=== PATIENT | male | born 1960 | race Caucasian/White ===

== ENCOUNTER 2019-01-31 15:06 | Inpatient (IN) | payer BC ==
[~2019-01-31] VITALS: Ht 188 cm; Wt 104.3 kg
[2019-01-31 15:18] VITALS: Ht 188 cm; Wt 104.3 kg
--- NOTE | 2019-01-31 15:21 | NUR ---
EKG IN PROGESS
--- NOTE | 2019-01-31 15:29 | NUR ---
PT TO H1 FOR MONITORING UNTIL MONITORED BED IS AVAILABLE.
--- NOTE | 2019-01-31 15:36 | NUR ---
PT LYING IN BED, AAOX4 WITH C/O PALPATIONS WITH DIZZINESS AND SOB STARTING AT 1PM TODAY WHILE PT WAS EATING LUNCH WITH FAMILY. PT STATES 'ITS LIKE 2 PITBULLS ARE RUNNING AROUND MY CHEST'. PT STATES NO PAIN AT THIS TIME. NO SIGNS OF DISTRESS AT THIS TIME. PT STATES 'IT HAS CALMED DOWN ALOT SINCE I GOT HERE.' FAMILY AT BEDSIDE. PT ON MONITOR.
--- NOTE | 2019-01-31 15:42 | NUR ---
PT MOVED TO ED BED 4 FOR CARDIAC MONITORING.
--- NOTE | 2019-01-31 15:50 | NUR ---
DR MARTINES AT BEDSIDE FOR MSE
--- NOTE | 2019-01-31 15:52 | NUR ---
DURING MSE, PT ALSO ADMITTED TO DRINKING A "WHOLE POT" OF COFFEE THIS AM AND HAVING AN ENERGY DRINK PRIOR TO THE GYM IN THE AM.
--- NOTE | 2019-01-31 15:57 | NUR ---
IV BOLUS INITIATED PER MD ORDER, PT VERBALIZED UDNERSTANDING OF MEDICATION PRIOR TO ADMINISTRATION.
--- NOTE | 2019-01-31 16:04 | NUR ---
XRAY AT BEDSIDE
[2019-01-31 16:08] LABS: BASOPHIL % 0.8 % (0-2); PLATELET COUNT 233 x10^3mcL (130-400); RED CELL DISTRIBUTION WIDTH 13.7 % (11.5-14.5)
[2019-01-31 16:24] LABS: CALCIUM 9.4 mg/dL (8.5-10.1); CARBON DIOXIDE 27.7 mmol/L (21-32); CHLORIDE SERUM 104 mmol/L (98-107); CREATININE SERUM 1.1 mg/dL (0.7-1.3); GFR1 > 60 mL/min; GLUCOSE SERUM 109 mg/dL (74-106); SODIUM SERUM 141 mmol/L (136-145)
[2019-01-31 16:33] LABS: ALBUMIN 3.7 g/dL (3.4-5.0); ALKALINE PHOSPHATASE 46 U/L (46-116); ALT/SGPT 29 U/L (16-63); AST/SGOT 23 U/L (15-37); MAGNESIUM 1.8 mg/dL (1.8-2.4); TOTAL PROTEIN, SERUM 6.7 g/dL (6.4-8.2)
[2019-01-31 16:41] LABS: AMPHETAMINE QUAL UR NONE DETECTED (See below)
--- NOTE | 2019-01-31 16:46 | NUR ---
PT RESTING AT BEDSIDE IN NAD. BREATHING E/U, BILATERAL CHEST RISE. BED AT LOWEST POSITION. AT BEDSIDE. LIGHTS DIMMED TO PROMOTE PATIENT COMFORT.
[2019-01-31 17:02] LABS: FREE T4 1.09 ng/dL (0.76-1.46); FREE THYROXINE INDEX 2.6 ug/dL (1.4-4.5); T4(THYROXINE) 6.8 ug/dL (4.7-13.3)
[2019-01-31 17:03] LABS: T3 TOTAL 0.99 ng/mL
--- NOTE | 2019-01-31 17:17 | NUR ---
PT RESTING AT BEDSIDE IN NAD
[2019-01-31] MEDS ORDERED: NAPROXEN375 MG (18:21)
--- NOTE | 2019-01-31 18:43 | NUR ---
REPORT OFF TO DMITRI ORELLANA
[2019-01-31 19:06] LABS: PHOSPHOROUS 2.3 mg/dL (2.5-4.9)
[2019-01-31 19:18] LABS: CHOLESTEROL/HDL RATIO 2.1
[2019-01-31 19:27] VITALS: BP 123/79
--- NOTE | 2019-01-31 19:35 | NUR ---
RECEIVED PT FROM ER. PT ADMIT FOR NEW ONSET A.FIB, PT IS A/O X4, VERBAL RESPONSIVE, ABLE TO TELL WHAT HE NEEDS. LUNG SOUND CLEAR BILATERAL, NO COUGH, NO SOB, PT IS ON TELE 8, A.FIB, PT C/O PALIPATION AT THIS TIME, BOWEL SOUND PRESENT ALL 4 QUADRANTS, NO DISTENTION, NO TENDER. PEDAL PULSE PRESENT BOTH FEET, NO EDEMA, IV AT LEFT AC, NO LEAKING, NO INFILTRATION. ALL ADLS ASSIST, ALL NEED MET, CALL LIGHT IN REACH, WILL CONTINUE TO MONTIOR.
--- NOTE | 2019-01-31 19:50 | NUR ---
RECEIVED REPORT FROM ESTEBAN. PATIENT WAS SEEN RESTING COMFORTABLY IN BED WATCHING TV. INTRODUCED MYSELF. NO C/O PAIN. C/O IMPROVING PALPTATIONS. DENIES CHEST PAIN/PRESSURE AT THIS TIME. NO DISTRESS NOTED. BREATHING EVEN ON ROOM AIR. CALL LIGHT IS WITHIN REACH. COMFORT AND SAFETY MEASURSE MAINTAINED. BED IS LOCKED AND IN THE LOWEST POSITION. ABLE TO MAKE NEEDS KNOWN. INSTRUCTED TO CALL FOR ASSISTANCE.
--- NOTE | 2019-01-31 20:44 | NUR ---
ADMINISTERED SCHEDULED ATIVAN IV 2MG. PATIENT C/O OF ANXIOUSNESS. EDUCATED PATIENT THAT DROWSINESS MAY OCCUR. ALSO ADMINISTIERED SCHEDULED XARELTO. EDCUATED PATIENT ON THE MEDICATION AND POTENTIAL SIDE EFFECTS. PATIENT VERBALIZED UNDERSTANDING. PATIENT REPORTS FEELING LESS ANXIOUS. WILL CONTINUE TO MONITOR. NO DISTRESS NOTED. NO C/O PAIN. CALL LIGHT IS WITHIN REACH.
--- NOTE | 2019-01-31 22:13 | NUR ---
PHOS 2.3, COVERED WITH PO. AT BEDSIDE. PATIENT REQUESTING FOOD. EGG SANDWHICH GIVEN TO PATIENT. NO DISTRESS NOTED. DENIES PAIN/CHEST PAIN. CALL LIGHT IS WITHIN REACH. BREATHING EVEN.
--- NOTE | 2019-01-31 22:50 | NUR ---
HR IN 130-140s. DR DUARTE MADE AWARE. SAID KIP WILL PLACE NEW ORDERS FOR CARDIZEM PO. WILL CARRY OUT ORDERS. PATIENT DENIES CHEST PAIN/PRESSURE. STATES HE STILL HAS PALPITATIONS, BUT IMPROVED FROM WHEN HE CAME TO THE ED. NO DISTRESS NOTED. BREATHING EVEN ON ROOM AIR. CALL LIGHT IS WITHTIN REACH. WILL CONTINUE TO MONITOR. AT BEDSIDE.
--- NOTE | 2019-01-31 22:50 | NUR ---
HR IN 130-140s. DR DUARTE MADE AWARE. SAID SHE WILL ORDER CARDIZEM PO. WILL CARRY OUT ORDERS. PATIENT DENIES CHEST PAIN/PRESSURE. STATES HE STILL FEELS PALPITATION, BUT IMPROVED FROM WHEN HE CAME TO THE ED. NO DISTRESS NOTED. BREATHING EVEN ON ROOM AIR. CALL LIGHT IS WITHIN REACH.
[2019-01-31 22:58] VITALS: BP 124/77
--- NOTE | 2019-01-31 23:58 | NUR ---
AFTER CARDIZEM, HR IS AT 90. WILL CONTINUE TO MONITOR.
[2019-02-01 00:09] VITALS: BP 102/53
--- NOTE | 2019-02-01 02:23 | NUR ---
TELE MONITOR REPORTED THAT HR CONVERTED TO SINUS GIANNA AT 55BPM.
--- NOTE | 2019-02-01 02:25 | NUR ---
PATIENT IS RESTING WITH EYES CLOSED IN BED. AT BEDSIDE IN RECLINER CHAIR. NO DISTRESS NOTED. BREATHING EVEN ON ROOM AIR. IV TO THE LAC INFUSING NS WELL. TELE #8 READING SINUS GIANNA AT 58. CALL LIGHT IS WITHIN REACH. WILL CONTINUE TO MONITOR.
--- NOTE | 2019-02-01 05:34 | NUR ---
PATIENT SLEPT THROUGHOUT THE NIGHT. IN RECLINER AT BEDSIDE. NO ACUTE/SIGNIFICANT CHANGES NOTED. TELE #8, SINUS GIANNA AT 56. DENIES CHEST PAIN. NO C/O PAIN TRHOUGHOUT THE NIGHT. IV TO THE LAC INFUSING NS WELL. PATENT AND INTACT. NO REDNESS OR SWELLING NOTED. BREATHING EVEN ON ROOM AIR. NO SOB OR RESP DISTRESS NOTED. COMFORT AND SAFETY MEASURES MAINTAINED. CALL LIGHT IS WITHIN REACH. WILL ENDORSE CARE TO DAY SHIFT RN.
[2019-02-01 05:44] VITALS: BP 11/67; BP 110/67
--- NOTE | 2019-02-01 06:07 | NUR ---
PATIENT IS AWAKE IN BED. DENIES PALPITATIONS. TELE #8 NSR AT 83. NO DISTRESS NOTED. BREATHING EVEN ON ROOM AIR. DENIES CHEST PAIN. WILL ENDORSE CARE TO DAY SHIFT RN.
[2019-02-01 06:35] LABS: CALCIUM 8.6 mg/dL (8.5-10.1); CARBON DIOXIDE 29.8 mmol/L (21-32); CHLORIDE SERUM 106 mmol/L (98-107); CREATININE SERUM 1.2 mg/dL (0.7-1.3); GFR1 > 60 mL/min; GLUCOSE SERUM 97 mg/dL (74-106); POTASSIUM SERUM 4.2 mmol/L (3.5-5.1); SODIUM SERUM 142 mmol/L (136-145)
--- NOTE | 2019-02-01 07:30 | NUR ---
RECIEVED REPORT FROM SPECIALTY SALES CONSULTANT NURSE TO ASSUME ALL CARES. ALL QUESTIONS AND CONCERNS ADDRESSED. PATIENT IS AWAKE/ALERT ON ROOM AIR. DENIES SOB, CHEST PAIN OR PALPATATIONS. NS INFUSING TO LAC IV AT 100 ML/HR WITH NO SIGNS OF INFILTRATION. BED TO LOWEST POSTION, SIDE RAILS UP X2, CALL LIGHT WITHIN REACH. WILL CONTINUE TO MONITOR.
[2019-02-01 07:33] LABS: BASOPHIL % 0.4 % (0-2); PLATELET COUNT 195 x10^3mcL (130-400); RED CELL DISTRIBUTION WIDTH 13.7 % (11.5-14.5)
[2019-02-01 09:24] VITALS: BP 117/63
--- NOTE | 2019-02-01 12:50 | NUR ---
PROTECTIVE OFFICER REMOVED FROM PATIENT AND DOWNGRADED TO MED-SURG PATIENT PER DOCTOR ORDER. WILL CONTINUE TO MONITOR.
--- NOTE | 2019-02-01 13:00 | NUR ---
TECH AT BEDSIDE FOR ECHOCARDIOGRAM. WILL CONTINUE TO MONITOR.
[2019-02-01 17:59] VITALS: BP 121/70
--- NOTE | 2019-02-01 19:30 | NUR ---
CARE ASSUMED FROM OUTGOING RN. PT RESTING COMFORTABLY IN BED. FRIEND AT BEDSIDE. NO ACUTE DISTRESS NOTED. EVEN AND UNLABORED RESPIRATIONS NOTED ON RA. DENIES ANY PAIN AT THIS TIME. IV PATENT AND INTACT. BED IN LOWEST POSITION. SIDE RAILS UP X2. CALL LIGHT WITHIN REACH. WILL CONTINUE TO MONITOR.
[2019-02-01 20:33] VITALS: BP 107/57
--- NOTE | 2019-02-02 00:05 | NUR ---
PT SLEEPING COMFORTABLY IN BED. NO ACUTE DISTRESS NOTED. EVEN AND UNLABORED RESPIRATIONS NOTED ON RA. BED IN LOWEST POSITION. SIDE RAILS UP X2. CALL LIGHT WITHIN REACH. WILL CONTINUE TO MONITOR.
[2019-02-02 05:17] VITALS: BP 107/64
[2019-02-02 06:33] LABS: BASOPHIL % 0.5 % (0-2); PLATELET COUNT 201 x10^3mcL (130-400)
--- NOTE | 2019-02-02 06:50 | NUR ---
PT SLEPT COMFORTABLY IN INTERVALS THROUGHOUT THE NIGHT. NO ACUTE CHANGES OR DISTRESS NOTED. EVEN AND UNLABORED RESPIRATIONS NOTED ON RA. IV PATENT AND INTACT. ALL SCHEDULED MEDICATIONS GIVEN. ALL NEEDS TENDED TO AND MET. BED IN LOWEST POSITION. SIDE RAILS UPX2. CALL LIGHT WITHIN REACH. WILL ENDORSE TO ONCOMING SHIFT.
--- NOTE | 2019-02-02 07:05 | NUR ---
RECEIVED PATIENT FROM GATE TECHNICIAN NURSE. PATIENT IS AWAKE, ALERT AND ORIENTED. PATIENT DENIES CHEST PAIN AND PALPITATIONS. ON ROOM AIR, BREATHING EVEN AND UNLABORED, DENIES SOB. IV NOTED TO LAC, IVF INFUSING WELL ORDERED, NO S/S ERYTHEMA AT SITE. CALL LIGHT WITHIN EASY REACH. WILL CONTINUE PLAN OF CARE.
[2019-02-02 07:14] LABS: CALCIUM 8.5 mg/dL (8.5-10.1); CARBON DIOXIDE 29.2 mmol/L (21-32); CHLORIDE SERUM 105 mmol/L (98-107); GFR1 > 60 mL/min; GLUCOSE SERUM 83 mg/dL (74-106); MAGNESIUM 1.8 mg/dL (1.8-2.4); PHOSPHOROUS 3.6 mg/dL (2.5-4.9); POTASSIUM SERUM 4.1 mmol/L (3.5-5.1); SODIUM SERUM 140 mmol/L (136-145)
[2019-02-02 08:20] VITALS: BP 118/81
[2019-02-02] MEDS ORDERED: ECO81 PO (11:02)
[2019-02-02] MEDS ORDERED: CARCD120 PO (11:02)
[2019-02-02 11:22] VITALS: BP 118/81
[2019-02-02 11:59] VITALS: BP 120/63
--- NOTE | 2019-02-02 13:37 | NUR ---
PATIENT DC'D AT THIS TIME. AWAKE, ALERT AND ORIENTED. DENIES CP AND PALPITATIONS. NO C/O PAIN OR DISCOMFORT. VS STABLE. ALL DC INSTRUCTIONS GIVEN TO THE PATIENT. ALL QUESTIONS ANSWERED. ALL NEW PRESCRIPTIONS GIVEN TO PATIENT. PROVIDED WITH CD IMAGING OF ECHO PER REQUEST. IV REMOVED AND CATHETER TIP INTACT. ALL PERSONAL BELONGINGS TAKEN WITH PATIENT. PATIENT AND FAMILY WALKED DOWN TO DC OFFICE ACCOMPANIED BY JOSE CORDERO.
== END 2019-02-02 13:37 | disposition home or self-care (01) | DRG 308 ==
LOC: ED 15:06 → DU 18:14 → MU 02-01 12:59
PROVIDERS: Emergency Medicine; ADMIT Family Medicine
DX: I48.91 Unspecified atrial fibrillation (principal); N17.0 Acute kidney failure with tubular necrosis; T43.615A Adverse effect of caffeine, initial encounter; Y92.89 Other specified places as the place of occurrence of the external cause; E83.39 Other disorders of phosphorus metabolism; I48.92 Unspecified atrial flutter
CPT/HCPCS: 83880; 84439; J2060; J3490; J7030; Q0092

== ENCOUNTER 2019-09-16 16:20 | Emergency (ER) | payer OTHER ==
[~2019-09-16] VITALS: Ht 188 cm; Wt 104.3 kg
[~2019-09-16 16:20] MED LIST: CARCD120 PO; ECO81 PO; NAPROXEN375 MG
[2019-09-16 16:54] VITALS: Ht 188 cm; Wt 104.3 kg
[2019-09-16 18:34] LABS: BASOPHIL % 1.2 % (0-2); PLATELET COUNT 318 x10^3mcL (130-400)
[2019-09-16 18:40] LABS: microscopic required? NO
[2019-09-16 18:42] LABS: RED CELL DISTRIBUTION WIDTH 15.5 % (11.5-14.5)
[2019-09-16 18:56] LABS: CALCIUM 9.2 mg/dL (8.5-10.1); CHLORIDE SERUM 99 mmol/L (98-107); CREATININE SERUM 1.1 mg/dL (0.7-1.3); GFR1 > 60 mL/min; GLUCOSE SERUM 90 mg/dL (74-106); POTASSIUM SERUM 4.2 mmol/L (3.5-5.1); SODIUM SERUM 135 mmol/L (136-145)
[2019-09-16 18:56] LABS: UA SPECIFIC GRAVITY 1.025 (1.005-1.035); urine erythrocyte NEGATIVE (NEGATIVE)
[2019-09-16 18:57] LABS: ALBUMIN 3.7 g/dL (3.4-5.0); ALKALINE PHOSPHATASE 69 U/L (46-116); ALT/SGPT 24 U/L (16-63); AST/SGOT 17 U/L (15-37); C REACTIVE PROTEIN 0.9 mg/dL (<=0.9); TOTAL PROTEIN, SERUM 7.3 g/dL (6.4-8.2)
[2019-09-16 19:30] LABS: ERYTHROCYTE SED RATE 2 mm/hr (0-20)
[2019-09-16 20:11] VITALS: BP 135/76
== END 2019-09-16 20:48 | disposition home or self-care (01) ==
LOC: ED 16:20
PROVIDERS: Emergency Medicine
DX: Z96.652 Presence of left artificial knee joint (principal); L08.9 Local infection of the skin and subcutaneous tissue, unspecified; I48.91 Unspecified atrial fibrillation; Z98.890 Other specified postprocedural states
CPT/HCPCS: J0696; J1885; J2270; J2405; J3370; J7060